=== PATIENT | male | born 1950 | race Caucasian/White ===

== ENCOUNTER 2020-06-20 08:46 | Outpatient (REF) | payer OTHER, SELFPAY ==
--- NOTE | 2020-06-20 08:51 | CT_ITS ---
EXAMINATION: CT CHEST WITHOUT CONTRAST CLINICAL INFORMATION: Lung nodule. COMPARISON: Previous chest CT most recent June 2019 TECHNIQUE: Multidetector volumetric CT imaging of the chest was done. Axial MIP volume rendering provided. Sagittal and coronal reformatted images were obtained. This CT examination was performed using dose optimization techniques as appropriate, variously including the following: *Automated exposure control *Adjustment of mA and/or kV according to patient size (this includes techniques or standardized protocols for targeted exams where dose is matched to indication/reason for exam; i.e. extremities or head) *Use of iterative reconstruction technique DLP: 171 mGy-cm FINDINGS: LUNGS: There is evidence of severe emphysema. There is biapical pleural and parenchymal scarring. The 8 x 9 mm peripheral or subpleural right middle lobe nodule adjacent to the minor fissure axial image 407 series 7 is stable. There are multiple smaller calcified and noncalcified small pulmonary nodules that are stable. There is subsegmental atelectasis or scarring in the right middle lobe, left upper lobe and lingula that is stable. MEDIASTINUM: There are multiple mediastinal lymph nodes that are stable. Larger lymph nodes are upper normal in size. No new adenopathy is seen. There are post-CABG changes. The heart does not appear enlarged. There is no pericardial effusion. The thoracic aorta is normal in caliber. PLEURA: There is no pleural effusion. No pleural mass or thickening. AXILLA: No lymphadenopathy. UPPER ABDOMEN: There may be diverticulosis of the colon. OSSEOUS STRUCTURES: There are degenerative changes of the spine. There is a median sternotomy. CT/CT chest wo con IMPRESSION: Severe emphysema. Biapical pleural and parenchymal scarring. Stable pulmonary nodules.
== END 2020-06-20 08:47 | disposition home or self-care (01) ==
LOC: HO.CT 08:46
PROVIDERS: PCP Internal Medicine; Visit Provider Internal Medicine
DX: R91.1 Solitary pulmonary nodule (principal)
CPT/HCPCS: 71250

== ENCOUNTER 2020-11-28 10:23 | Outpatient (REF) | payer BC, SELFPAY ==
[2020-11-28 11:25] LABS: Estimated Average Glucose 114 mg/dL; Hemoglobin A1C 150.0921 umol/L; Hemoglobin A1c % 5.6 %
[2020-11-28 11:52] LABS: Alanine Aminotransferase 28 U/L (0-40); Albumin Level 4.3 g/dL (3.5-5.0); Alkaline Phosphatase 69 U/L (39-117); Aspartate Amino Transferase 19 U/L (5-37); Bilirubin Direct 0.3 mg/dL (0.0-0.5); Bilirubin Total 0.7 mg/dL (0.0-1.0); Cholesterol 101 mg/dL; Glucose Fasting 99 mg/dL (60-99); HDL Cholesterol 28 mg/dL; LDL Cholesterol Calculated 51 mg/dl; Total Protein 7.5 g/dL (6.5-8.0); Triglycerides 112 mg/dL
[2020-11-28 13:40] LABS: Reflex LDLD? No
== END 2020-11-28 10:24 | disposition home or self-care (01) ==
LOC: HO.LNP 10:23
PROVIDERS: PCP Internal Medicine; Visit Provider Internal Medicine
DX: E78.5 Hyperlipidemia, unspecified (principal); R73.03 Prediabetes
CPT/HCPCS: 80061; 80076; 82947; 83036

== ENCOUNTER 2021-05-08 10:14 | Outpatient (REF) | payer BC, SELFPAY ==
[2021-05-08 10:19] LABS: MANUAL DIFF FLAG NO
[2021-05-08 10:23] LABS: Basophils Percent Auto 0.3 % (0-2); Eosinophils Absolute Auto 0.3 X10*3/uL (0.0-0.4); Eosinophils Percent Auto 4.4 % (0-4); Hematocrit 44.1 % (42-52); Hemoglobin 14.4 g/dl (14.0-18.0); Imm Gran Abs Auto 0.01 X10*3/uL (0.00-0.03); Imm Gran Pct Auto 0.2 % (0.0-0.4); Lymphocytes Percent Auto 30.6 % (20-40); Mean Corpuscular HGB Conc 32.7 g/dl (31.0-36.0); Mean Corpuscular Hemoglobin 32.1 pg (27.0-33.0); Mean Corpuscular Volume 98.4 fL (80-98); Mean Platelet Volume 11.4 fL (9.4-12.4); Monocytes Absolute Auto 0.7 X10*3/uL (0.1-1.2); Monocytes Percent Auto 10.7 % (2-11); Neutrophils Absolute Auto 3.6 X10*3/uL (2.0-8.3); Neutrophils Percent Auto 53.8 % (45-73); Platelet Count 163 X10*3/uL (160-400); Red Blood Count 4.48 X10*6/uL (4.60-5.80); Red Cell Distribution Width 13.9 % (11.0-16.0); White Blood Count 6.6 X10*3/uL (4.8-10.8)
[2021-05-08 10:42] LABS: Alanine Aminotransferase 28 U/L (0-40); Albumin Level 4.2 g/dL (3.5-5.0); Alkaline Phosphatase 56 U/L (39-117); Anion Gap 14 (12-20); Appearance Urine CLEAR; Aspartate Amino Transferase 16 U/L (5-37); Bilirubin Total 0.8 mg/dL (0.0-1.0); Blood Urea Nitrogen 18 mg/dL (9-16); Calcium 8.8 mg/dL (8.4-10.2); Carbon Dioxide 21 mmol/L (22-29); Chloride 113 mmol/L (96-108); Cholesterol 98 mg/dL; Color Urine YELLOW; Estimated Glomerular Filt Rate 56; Glucose Fasting 99 mg/dL (60-99); Glucose Urine UA NEG (NEG); HDL Cholesterol 25 mg/dL; LDL Cholesterol Calculated 47 mg/dl; Leukocyte Esterase Urine NEG (NEG); Nitrite Urine NEG (NEG); Potassium 4.1 mmol/L (3.3-5.1); Sodium 144 mmol/L (135-145); Specific Gravity - Urine 1.025 (1.005-1.025); Total Protein 7.1 g/dL (6.5-8.0); Triglycerides 130 mg/dL; Urine Blood NEG (NEG); Urine Ketones NEG (NEG); Urine Protein NEG (NEG-TRACE)
[2021-05-08 11:06] LABS: Creatinine Urine 120.26 mg/dL; Microalbum/Creatinine Ratio Ur 10.8 ug/mg cr
[2021-05-08 11:13] LABS: Estimated Average Glucose 108 mg/dL; Hemoglobin A1c % 5.4 %
[2021-05-08 12:01] LABS: Reflex LDLD? No
== END 2021-05-08 10:15 | disposition home or self-care (01) ==
LOC: HO.LNP 10:14
PROVIDERS: Visit Provider Internal Medicine
DX: Z00.00 Encounter for general adult medical examination without abnormal findings (principal); Z12.5 Encounter for screening for malignant neoplasm of prostate; E87.1 Hypo-osmolality and hyponatremia; R79.89 Other specified abnormal findings of blood chemistry; E78.5 Hyperlipidemia, unspecified; R79.9 Abnormal finding of blood chemistry, unspecified; E87.5 Hyperkalemia
CPT/HCPCS: 80053; 80061; 81003; 82043; 83036; 84153; 85025

== ENCOUNTER 2021-06-20 10:21 | Outpatient (REF) | payer BC, SELFPAY ==
--- NOTE | ~2021-06-20 | CT_ITS ---
EXAMINATION: CT CHEST WITHOUT CONTRAST CLINICAL INFORMATION: Lung nodule. COMPARISON: CT chest 06/20/2020 06/18/2019. TECHNIQUE: Multidetector volumetric CT imaging of the chest was done. Axial MIP volume rendering provided. Sagittal and coronal reformatted images were obtained. This CT examination was performed using dose optimization techniques as appropriate, variously including the following: *Automated exposure control *Adjustment of mA and/or kV according to patient size (this includes techniques or standardized protocols for targeted exams where dose is matched to indication/reason for exam; i.e. extremities or head) *Use of iterative reconstruction technique DLP: 187 mGy-cm FINDINGS: CUSTOMER SUPPORT EXECUTIVE: The lungs are hyperinflated without any acute process. There are median sternotomy sutures. LUNGS: There is diffuse centrilobular emphysema with bilateral apical parenchymal scarring and apical pleural thickening. There is a 1 mm calcified nodule left lower lobe axial image 315/7, 1 mm calcified nodule left upper lobe image 311/7, 2 mm calcified nodule right upper lobe axial image 350/7, 7mm x 8 mm nodule right middle lobe axial image 398/7. There are a few scattered calcified nodules in the right lower lobe adjacent to the major fissure measuring 2 mm and 3 mm axial image 456/7 and 450/7 respectively. There are several additional calcifications seen. No consolidation noted. MEDIASTINUM: The thyroid lobes are symmetric and normal. The central trachea and the bronchi are widely patent. The heart size and the great vessels are normal caliber. There is no pericardial effusion. There are coronary artery calcifications present. There are several benign precarinal and pretracheal lymph nodes. PLEURA: There is no pleural effusion. No pleural mass or thickening. AXILLA: There are small shotty axillary lymph nodes which appear benign. The chest wall is unremarkable. UPPER ABDOMEN: Liver, spleen, pancreas and bilateral adrenal glands appear unremarkable. There is no radiopaque gallstones. OSSEOUS STRUCTURES: No aggressive lytic or sclerotic process seen. The median sternotomy sutures from previous CABG. CT/CT chest wo con IMPRESSION: 1. Few centrilobular emphysema with multiple calcified and noncalcified nodules, stable. The largest 7 x 8 mm nodule right middle lobe essentially stable. Previously it measured 8 x 9 mm. 2. Benign bilateral axillary and mediastinal lymph nodes. 3. No change from previous study.
== END 2021-06-20 10:22 | disposition home or self-care (01) ==
LOC: HO.CT 10:21
PROVIDERS: Visit Provider Internal Medicine
DX: R91.1 Solitary pulmonary nodule (principal)
CPT/HCPCS: 71250

== ENCOUNTER 2021-11-30 11:07 | Outpatient (REF) | payer BC, SELFPAY ==
[2021-11-30 12:29] LABS: Estimated Average Glucose 126 mg/dL
[2021-11-30 12:31] LABS: Alanine Aminotransferase 26 U/L (0-40); Albumin Level 4.1 g/dL (3.5-5.0); Alkaline Phosphatase 64 U/L (39-117); Aspartate Amino Transferase 16 U/L (5-37); Bilirubin Direct 0.5 mg/dL (0.0-0.5); Bilirubin Total 1.2 mg/dL (0.0-1.0); Cholesterol 104 mg/dL; Glucose Fasting 107 mg/dL (60-99); HDL Cholesterol 25 mg/dL; LDL Cholesterol Calculated 54 mg/dl; Total Protein 7.3 g/dL (6.5-8.0); Triglycerides 128 mg/dL
== END 2021-11-30 11:08 | disposition home or self-care (01) ==
LOC: HO.LNP 11:07
PROVIDERS: Visit Provider Internal Medicine
DX: E78.5 Hyperlipidemia, unspecified (principal); R73.03 Prediabetes
CPT/HCPCS: 80061; 80076; 82947; 83036

== ENCOUNTER 2022-06-07 10:38 | Outpatient (REF) | payer BC, SELFPAY ==
[2022-06-07 10:49] LABS: MANUAL DIFF FLAG NO
[2022-06-07 11:09] LABS: Basophils Percent Auto 0.4 % (0-2); Eosinophils Absolute Auto 0.2 X10*3/uL (0.0-0.4); Eosinophils Percent Auto 2.7 % (0-4); Hematocrit 46.5 % (42.0-52.0); Hemoglobin 15.5 g/dl (14.0-18.0); Imm Gran Abs Auto 0.04 X10*3/uL (0.00-0.03); Imm Gran Pct Auto 0.5 % (0.0-0.4); Lymphocytes Absolute Auto 2.1 X10*3/uL (1.2-4.9); Lymphocytes Percent Auto 25.6 % (20-40); Mean Corpuscular HGB Conc 33.3 g/dl (31.0-36.0); Mean Corpuscular Hemoglobin 32.5 pg (27.0-33.0); Mean Corpuscular Volume 97.5 fL (80.0-98.0); Mean Platelet Volume 10.8 fL (9.4-12.4); Monocytes Absolute Auto 0.9 X10*3/uL (0.1-1.2); Monocytes Percent Auto 11.6 % (2-11); Neutrophils Absolute Auto 4.8 x10*3/uL (2.0-8.3); Neutrophils Percent Auto 59.2 % (45-73); Platelet Count 198 X10*3/uL (160-400); Red Blood Count 4.77 X10*6/uL (4.60-5.80); Red Cell Distribution Width 14.3 % (11.0-16.0); White Blood Count 8.1 X10*3/uL (4.8-10.8)
[2022-06-07 11:13] LABS: Appearance Urine Clear; Color Urine Yellow; Glucose Urine UA Negative (Negative); Leukocyte Esterase Urine Negative (Negative); Nitrite Urine Negative (Negative); PH 5.5 (5.0-9.0); Urine Blood Negative (Negative); Urine Ketones Negative (Negative); Urine Protein Negative (Neg-Trace)
[2022-06-07 11:16] LABS: Bacteria Urine None Seen (None Seen); Hyaline Casts Urine 0-2 /LPF (0-2); RBC Urine 0-2 /HPF (0-2); Squamous Epithelial Cell Urine 0-2 /HPF (0-2); WBC Urine 0-5 /HPF (0-5)
[2022-06-07 11:19] LABS: Estimated Average Glucose 117 mg/dL; Hemoglobin A1c % 5.7 %
[2022-06-07 11:20] LABS: Alanine Aminotransferase 29 U/L (0-40); Albumin Level 4.4 g/dL (3.5-5.0); Alkaline Phosphatase 60 U/L (39-117); Anion Gap 16 (12-20); Aspartate Amino Transferase 21 U/L (5-37); Bilirubin Total 1.5 mg/dL (0.0-1.0); Blood Urea Nitrogen 18 mg/dL (9-16); Calcium 9.3 mg/dL (8.4-10.2); Carbon Dioxide 21 mmol/L (22-29); Chloride 108 mmol/L (96-108); Cholesterol 104 mg/dL; Estimated Glomerular Filt Rate 50; Glucose Fasting 98 mg/dL (60-99); HDL Cholesterol 28 mg/dL; LDL Cholesterol Calculated 47 mg/dl; Potassium 4.2 mmol/L (3.3-5.1); Sodium 141 mmol/L (135-145); Total Protein 7.6 g/dL (6.5-8.0); Triglycerides 146 mg/dL
[2022-06-07 11:52] LABS: Creatinine Urine 69.17 mg/dL; Microalbum/Creatinine Ratio Ur 7.2 ug/mg cr
== END 2022-06-07 10:39 | disposition home or self-care (01) ==
LOC: HO.LNP 10:38
PROVIDERS: Visit Provider Internal Medicine
DX: Z00.00 Encounter for general adult medical examination without abnormal findings (principal); E78.5 Hyperlipidemia, unspecified; R73.03 Prediabetes; Z12.5 Encounter for screening for malignant neoplasm of prostate
CPT/HCPCS: 80053; 80061; 81001; 82043; 83036; 84153; 85025

== ENCOUNTER 2022-06-14 13:06 | Outpatient (REF) | payer BC, SELFPAY ==
--- NOTE | ~2022-06-14 | CT_ITS ---
EXAMINATION: CT CHEST WITHOUT CONTRAST CLINICAL INFORMATION: Solitary pulmonary nodule. Follow up. COMPARISON: CT chest 06/20/2021. TECHNIQUE: Multidetector volumetric CT imaging of the chest was done. Axial MIP volume rendering provided. Sagittal and coronal reformatted images were obtained. This CT examination was performed using dose optimization techniques as appropriate, variously including the following: *Automated exposure control *Adjustment of mA and/or kV according to patient size (this includes techniques or standardized protocols for targeted exams where dose is matched to indication/reason for exam; i.e. extremities or head) *Use of iterative reconstruction technique DLP: 159 mGy-cm FINDINGS: TRIMMING OPERATOR: Well-inflated lungs. There are median sternotomy sutures from previous intervention. LUNGS: There is diffuse centrilobular emphysema with bilateral apical pleural thickening and parenchymal scarring. There are punctate scattered calcified nodules in the range of 1 to 2 mm, unchanged. 1.2 cm pulmonary nodule right upper lobe on axial image 11/4. There is a faint ill-defined opacity anterior segment right upper lobe better seen on 8 mm thick images. It is nonspecific. There is an 8 mm nodule right middle lobe axial image 40/3. Previously measured same size. No additional nodules seen. MEDIASTINUM: Thyroid lobes are symmetric and normal. The central trachea and the bronchi are widely patent. There are coronary artery calcifications present. There is no pericardial effusion. Small calcifications are seen in the aortic window, likely calcified nodules. CORONARY ARTERY CALCIFICATION: Moderate coronary artery calcifications are present. PLEURA: There is no pleural effusion. No pleural mass or thickening. AXILLA: Small shotty lymph nodes seen in the axilla. The chest wall is unremarkable. UPPER ABDOMEN: Visualized liver, spleen, pancreas and bilateral adrenal glands unremarkable. OSSEOUS STRUCTURES: No aggressive lytic or sclerotic process seen. There are median sternotomy sutures from previous intervention. CT/CT chest wo IV con IMPRESSION: Stable punctate calcified nodules. Dominant noncalcified nodule right middle lobe measuring 8 mm is stable. There is new ill-defined opacity right upper lobe measuring 1.2 cm. It could represent developing scar. As per Fleischner guidelines, follow up can be performed in 3 months or PET/CT. Fleischner guidelines were followed.
== END 2022-06-14 13:07 | disposition home or self-care (01) ==
LOC: HO.CT 13:06
PROVIDERS: Visit Provider Internal Medicine
DX: R91.1 Solitary pulmonary nodule (principal)
CPT/HCPCS: 71250

== ENCOUNTER 2022-07-10 11:23 | Outpatient (REF) | payer BC, SELFPAY ==
--- NOTE | ~2022-07-10 | PE_ITS ---
EXAMINATION: PET/CT WHOLE BODY INDICATION: Pulmonary nodularity with staging. COMPARISON: Comparison is made to CT dated 05/14/2022. TECHNIQUE: Dedicated coincidence imaging from the base of the skull to the thighs. 16.4 mCi F-18 deoxyglucose. FINDINGS: The partially visualized brain activity is felt to be within normal limits. In the neck, some activity posterior to the hyoid cartilage which may be in the esophagus, but there is no obvious mass here. Activity at 4.9 SUV max. Consider direct visualization. The remainder of the neck activity is within normal limits. In the chest, there is no suspicious mediastinal or hilar activity. Imaging of the lung cisneros. Right Lung: No significant uptake in the area of density/scar nodularity in the right upper lung. Uptake in the region is 0.8 SUV max. Background in the lung is 0.5 SUV max. In the area of nodularity in the right middle lobe described on diagnostic CT, no significant uptake. Uptake at 0.9 SUV max. Left Lung: No suspicious focus. Upper Abdomen: In the liver, uptake on image 137 of 267 without a convincing evidence of a CT correlate. This is in the left lobe. Uptake at 4 SUV max. Background in the liver 2.9 SUV max. Consider ultrasound. Otherwise, splenic uptake is within normal limits. Uptake within the stomach with possible fold thickening. This may represent an element of gastritis. Consider direct visualization. Normal renal and bladder activity. Normal low-level bowel activity. Diverticulosis is noted in the colon. Atherosclerotic changes in the vasculature. Review of the bone windows does not demonstrate a suspicious focus. PET/PET CT fusion skull to thigh IMPRESSION: No significant uptake in areas of abnormality in the lung described on diagnostic CT. I would only recommend 3-month low-dose noncontrast followup. It should be noted 10% of lung malignancies do not show significant uptake. There is some uptake at the level of the hyoid bone posterior which shows no convincing anatomic correlate other than the esophagus in the region. There is also some uptake in the fundus of the stomach. I would recommend direct visualization endoscopy. Questionable focal uptake in the left lobe of the liver could be artifactual. Recommend ultrasound to exclude a lesion here.
== END 2022-07-10 11:24 | disposition home or self-care (01) ==
LOC: HO.PET 11:23
PROVIDERS: Visit Provider Internal Medicine
DX: Z13.89 Encounter for screening for other disorder (principal)

== ENCOUNTER 2022-10-17 14:54 | Outpatient (REF) | payer BC, SELFPAY ==
--- NOTE | ~2022-10-17 | CT_ITS ---
EXAMINATION: CT CHEST WITHOUT CONTRAST CLINICAL INFORMATION: Lung nodule. COMPARISON: None available. TECHNIQUE: Multidetector volumetric CT imaging of the chest was done. Axial MIP volume rendering provided. Sagittal and coronal reformatted images were obtained. This CT examination was performed using dose optimization techniques as appropriate, variously including the following: *Automated exposure control *Adjustment of mA and/or kV according to patient size (this includes techniques or standardized protocols for targeted exams where dose is matched to indication/reason for exam; i.e. extremities or head) *Use of iterative reconstruction technique DLP: 182 mGy-cm FINDINGS: FENCE MANUFACTURE SUPERVISOR: Hyperinflated lungs. LUNGS: There is diffuse centrilobular emphysema with bilateral apical pleural thickening and parenchymal scarring. There is an ill-defined right upper lobe density with a small posterior nodular component similar to previous study measuring 1.2 cm on image 34/9 and 117/6. Faint ill-defined density right upper lobe anterior segment better seen on 8 mm thick axial images image 39/9 measuring 7 mm stable. There are several punctate 1-2 mm pulmonary nodules are stable. There is an 8 mm nodule right middle lobe axial image 356/6, stable. MEDIASTINUM: The thyroid lobes are symmetric and normal. The central trachea and bronchi are widely patent. The heart size and great vessels are normal caliber. No pericardial effusion seen. No abnormal mediastinal lymph nodes. CORONARY ARTERY CALCIFICATION: There is moderate coronary artery calcifications present. PLEURA: There is no pleural effusion or thickening. AXILLA: There are no abnormal axillary lymph nodes seen. UPPER ABDOMEN: Visualized liver, spleen, pancreas and bilateral adrenal glands are unremarkable. There are no radiopaque gallstones. OSSEOUS STRUCTURES: No aggressive lytic or sclerotic process seen. There are median sternotomy sutures from previous intervention. There is [id number] lower dorsal spine ventral spondylosis. No aggressive lytic or sclerotic process seen. CT/CT chest wo IV con IMPRESSION: 1. Diffuse centrilobular emphysema with bilateral apical pleural thickening and parenchymal scarring. 2. There are several pulmonary nodules which are stable. No new nodules seen. 3. No abnormal mediastinal or axillary lymph nodes seen. 4. Moderate coronary artery calcifications are stable. 5. An 8 mm nodule right middle lobe is stable. 6. Recommend low-dose annual CT chest follow-up. Fleischner guidelines were followed.
== END 2022-10-17 14:55 | disposition home or self-care (01) ==
LOC: HO.CT 14:54
PROVIDERS: PCP Internal Medicine; Visit Provider Internal Medicine
DX: R91.1 Solitary pulmonary nodule (principal)
CPT/HCPCS: 71250

== ENCOUNTER 2022-12-06 10:22 | Outpatient (REF) | payer BC, SELFPAY ==
[2022-12-06 11:00] LABS: Estimated Average Glucose 117 mg/dL; Hemoglobin A1c % 5.7 %
[2022-12-06 11:03] LABS: Alanine Aminotransferase 40 U/L (0-40); Albumin Level 4.2 g/dL (3.5-5.0); Alkaline Phosphatase 64 U/L (39-117); Aspartate Amino Transferase 24 U/L (5-37); Bilirubin Direct 0.5 mg/dL (0.0-0.5); Bilirubin Total 1.8 mg/dL (0.0-1.0); Cholesterol 95 mg/dL; Glucose Fasting 99 mg/dL (60-99); HDL Cholesterol 26 mg/dL; LDL Cholesterol Calculated 44 mg/dl; Triglycerides 127 mg/dL
[2022-12-06 14:44] LABS: Reflex LDLD? No
== END 2022-12-06 10:23 | disposition home or self-care (01) ==
LOC: HO.LNP 10:22
PROVIDERS: PCP Internal Medicine; Visit Provider Internal Medicine
DX: E78.5 Hyperlipidemia, unspecified (principal); R73.03 Prediabetes
CPT/HCPCS: 80061; 80076; 82947; 83036

== ENCOUNTER 2023-04-03 09:01 | Day surgery (SDC) | payer BC, SELFPAY ==
[2023-04-03 09:35] VITALS: BMI 25.1
--- NOTE | 2023-04-03 09:36 | P.CONAN_ITS ---
HPI - Anesthesia Eval Consult details Narrative: egd [facility] Family History Family history of problems with anesthesia: No Surgical History History of Problems with Anesthesia: No Social History Social History Advance Directives: No Advance Directives Information Provided: Yes Meds Allergies Allergy/AdvReac Type Severity Reaction Status Date / Time No Known Allergies Allergy Unverified 04/02/23 13:12 Home Medications Medication Instructions Recorded Confirmed Last Taken Type albuterol sulfate 90 mcg/actuation inhalation 04/03/23 04/02/23 History aerosol inhaler aspirin 81 mg capsule 81 mg PO DAILY 04/03/23 04/03/23 04/02/23 History atorvastatin 80 mg tablet 80 mg PO DAILY 04/03/23 04/03/23 04/03/23 History diltiazem HCl 180 mg 180 mg PO DAILY 04/03/23 04/03/23 04/03/23 History capsule,extended release 24 hr, controlled (DILT-XR) losartan 100 mg tablet 100 mg PO DAILY 04/03/23 04/03/23 04/03/23 History tiotropium 2.5 mcg-olodaterol 2.5 2 puff inhalation DAILY 04/03/23 04/03/23 04/03/23 History mcg/actuation mist for inhalation (Stiolto Respimat) Exam Exam Date and Time: April 03, 2023 0936 Airway Mallampati Class: II TM Dist: >3cm Neck ROM: Limited Heart: rrr Lungs: cta Assessment and Plan Assessment Anesthesia Assessment: Anesthesia Plan Discussed and Chart Reviewed Final Anesthetic Review Family History of Problems with Anesthesia: No History of Problems with Anesthesia: No NPO: Yes ASA Class: II Final Preanesthetic Review: No Changes in Pt Med Stat, Meds/Allgs Chart Reviewed, Consent Obtained/Reviewed and Anes Risks/Benef Reviewed Patient Risk: Intermediate Procedure Risk: Intermediate Anesthetic Plan Anesthetic Plan: MAC: and Agree w/ Assess. and Plan Disposition: Standard PACU
[2023-04-03 09:49] VITALS: BP 131/71; PULSE 58; RESP 18; TEMP 36.3; O2SAT 91
--- NOTE | 2023-04-03 09:55 | ECG_ITS ---
Test Reason : inverted t waves Blood Pressure : / mmHG Vent. Rate : 065 BPM Atrial Rate : 065 BPM P-R Int : 184 ms QRS Dur : 092 ms QT Int : 396 ms P-R-T Axes : 071 040 160 degrees QTc Int : 411 ms Normal sinus rhythm ST & T wave abnormality, consider inferolateral ischemia Abnormal ECG No previous ECGs available Referred By: Peter Guillen Electronically Signed By:MARTIN TORO
--- NOTE | 2023-04-03 10:04 | PC.NURSE ---
pt with twave inversions on monitor denies chest pain, admits to sob w/activ at baseline ra sat 88-91% at baseline per pt. desat to 80-81% on RA with changing dressing dusky nailbeds rr24. 2Lnc applied sat improved to 95-97% lungs clear dim t.o. strip showed to Dr. Guillen, Floor Anesthesiologist. 12 lead ekg ordered & obtained.
--- NOTE | 2023-04-03 10:22 | PC.NURSE ---
attempt at calling front office coordinator for copy of ekg - message left at MD Sancho Thomas office - request fax of latest ekg for comparison. to try pcp, Dr. Mert Camacho - office closed on wednesdays, dr. Mcmanus covering, call placed - per office - no access to pt's record of EKG. Dr. Nunu manrique (case anesthesia). albuteral inhaler given by anesthesia nurse Nitza for optimization.
[2023-04-03 11:01] VITALS: BP 80/50; PULSE 84; RESP 16; TEMP 36.4; O2SAT 94
[2023-04-03 11:05] VITALS: BP 81/45; PULSE 83; RESP 16; O2SAT 95
--- NOTE | 2023-04-03 11:09 | PM.OP ---
Brief Operative Note Date of Service: 04/03/23 Pre-op diagnosis: Abnormal CT of esophagus and stomach Post-op diagnosis: other (Minimal hiatal hernia, mild gastritis) Procedure: EGD Surgeon: Xavier Zimmerman Anesthesia: MAC Was an Form Building Supervisor used for this Procedure?: No Estimated blood loss (mL): 0 Pathology: none sent Condition: stable Disposition: PACU
[2023-04-03 11:10] VITALS: BP 99/61; PULSE 79; RESP 16; O2SAT 96
[2023-04-03 11:15] VITALS: BP 103/64; PULSE 86; RESP 16; O2SAT 91
[2023-04-03 11:30] VITALS: BP 136/84; PULSE 86; RESP 16; TEMP 36.4; O2SAT 94
--- NOTE | 2023-04-03 11:31 | OP_ITS ---
DATE OF SERVICE: 04/03/2023 SURGEON: Xavier Zimmerman MD INDICATIONS: The patient presents for evaluation of an abnormal PET-CT scan of the esophagus and stomach. Full consent was obtained from him for this, including risks of bleeding and perforation. PREOPERATIVE DIAGNOSIS: Abnormal PET-CT scan of esophagus and stomach. POSTOPERATIVE DIAGNOSIS: PROCEDURE PERFORMED: Esophagogastroduodenoscopy. ESTIMATED BLOOD LOSS: COMPLICATIONS: ANESTHESIA: Monitored anesthesia care. ASSISTANTS: SPECIMENS: POSTOPERATIVE DIAGNOSES: Abnormal PET-CT scan of esophagus and stomach., small hiatal hernia, mild gastritis. DESCRIPTION OF PROCEDURE: The patient was placed in the left lateral decubitus position. The Olympus video gastroscope was passed into the posterior oropharynx and upper esophagus under direct vision. The scope was passed slowly to the distal esophagus. The gastroesophageal junction appeared normal at 39 cm. There was no sign of any esophagitis nor Mcwilliams's esophagus. There was a minimal hiatal hernia. The scope was advanced to the pylorus and the duodenum was cannulated to the descending portion. The duodenum including the bulb appeared normal without mass or ulceration. The scope was withdrawn back to the stomach. The gastric antrum had some areas of erythema and some slight edema, but no erosions nor ulceration. There was good peristalsis. The scope was retroflexed visualizing the proximal stomach very carefully which appeared normal, other than some slight areas of erythema and edema. There was no any sign of any proximal mass or ulceration. The scope was straightened and withdrawn back to the esophagus. The esophageal mucosa appeared normal. The proximal esophagus, at the area of abnormality on the PET-CT scan, appeared normal. The scope was withdrawn from the patient. He tolerated the procedure well and was returned to the recovery area in stable condition. IMPRESSION: 1. Minimal hiatal hernia. 2. Mild gastritis. PLAN: At this point, the patient is asymptomatic from a GI standpoint and therefore does not need any particular treatment. He was advised to resume his aspirin today. He will have an outpatient ultrasound of the right upper quadrant due to the questionable finding on the PET-CT scan involving the liver. I suspect that will also be normal. As such, he would then see me on a p.r.n. basis. This has been discussed with the patient and his in detail. MD ZHEN Gee/LIN / [id number] MARY
== END 2023-04-03 12:24 | disposition home or self-care (01) ==
PROVIDERS: PCP Internal Medicine; Visit Provider Internal Medicine
PROC: 0DJ08ZZ Inspection of Upper Intestinal Tract, Via Natural or Artificial Opening Endoscopic (ICD-10-PCS; CPT 43235; principal; 2023-04-03 10:20)
DX: R93.3 Abnormal findings on diagnostic imaging of other parts of digestive tract (principal); K29.60 Other gastritis without bleeding; K44.9 Diaphragmatic hernia without obstruction or gangrene; I10 Essential (primary) hypertension; E78.5 Hyperlipidemia, unspecified; I25.10 Atherosclerotic heart disease of native coronary artery without angina pectoris; Z95.5 Presence of coronary angioplasty implant and graft; J43.9 Emphysema, unspecified; Z87.891 Personal history of nicotine dependence; Z79.82 Long term (current) use of aspirin; Z79.01 Long term (current) use of anticoagulants; Z79.899 Other long term (current) drug therapy; R91.8 Other nonspecific abnormal finding of lung field
CPT/HCPCS: 43235; 93005

== ENCOUNTER 2023-04-19 10:09 | Outpatient (REF) | payer BC, SELFPAY ==
--- NOTE | ~2023-04-19 | US_ITS ---
EXAMINATION: US ABDOMEN LIMITED CLINICAL INFORMATION: Evaluate right upper quadrant abnormal findings on PET scan. COMPARISON: PET/CT 07/10/2022 TECHNIQUE: Real-time imaging of the right upper quadrant abdominal viscera. FINDINGS: PANCREAS: Visualized portions of the pancreas are unremarkable. The pancreatic tail is obscured by bowel gas. LIVER: Normal. The liver is normal in size. The liver contour is normal. Parenchymal echogenicity is normal. No focal hepatic lesion. There is no intrahepatic biliary duct dilatation seen. GALLBLADDER: Normal. The gallbladder is physiologically distended without evidence of stones, sludge, polyps, wall thickening or pericholecystic fluid. COMMON BILE DUCT: Normal in caliber measuring 0.3 cm in diameter. RIGHT KIDNEY: Normal. No hydronephrosis. No renal calculi or focal parenchymal lesions. The kidney measures 10.6 cm in maximum dimension. FREE FLUID: None. US/US abdomen limited IMPRESSION: No focal hepatic lesion identified sonographically however given findings on PET/CT recommend contrast-enhanced MRI to exclude a discrete liver lesion.
== END 2023-04-19 10:10 | disposition home or self-care (01) ==
LOC: HO.US 10:09
PROVIDERS: PCP Internal Medicine; Visit Provider Internal Medicine
DX: R93.2 Abnormal findings on diagnostic imaging of liver and biliary tract (principal)
CPT/HCPCS: 76705

== ENCOUNTER 2023-06-20 11:02 | Outpatient (REF) | payer BC, SELFPAY ==
--- NOTE | ~2023-06-20 | MR_ITS ---
EXAMINATION: MR ABDOMEN WITHOUT AND WITH CONTRAST CLINICAL INFORMATION: Liver lesion COMPARISON: Abdominal ultrasound 04/19/2023, PET/CT 07/10/2022 TECHNIQUE: MRI of the abdomen before and after the IV administration of 7.5 mL of Gadavist was obtained using routine sequences. FINDINGS: LUNG BASES: The visualized lung bases are unremarkable. KIDNEYS AND URETERS: Unremarkable. GALLBLADDER: Unremarkable. LIVER AND BILIARY TREE: The liver is normal in signal and morphology. No suspicious liver lesion. No intra or extrahepatic biliary duct dilatation. PANCREAS: Unremarkable SPLEEN: Unremarkable ADRENAL GLANDS: Unremarkable GASTROINTESTINAL TRACT: Colonic diverticulosis without evidence of diverticulitis. LYMPH NODES: No lymphadenopathy. VASCULAR: Atherosclerosis of the abdominal aorta. ABDOMINAL WALL: Unremarkable. OSSEOUS STRUCTURES: Multilevel degenerative disc disease. MR/MR abdomen wo/w con IMPRESSION: No suspicious liver lesion.
[2023-06-20] MEDS: gadobutroL 7.5 ML VIAL IVPUSH (12:18)
== END 2023-06-20 11:03 | disposition home or self-care (01) ==
LOC: HO.MRI 11:02
PROVIDERS: PCP Internal Medicine; Visit Provider Internal Medicine
DX: K76.9 Liver disease, unspecified (principal)
CPT/HCPCS: 74183; A9585

== ENCOUNTER 2023-07-12 10:17 | Outpatient (REF) | payer BC, SELFPAY ==
[2023-07-12 10:22] LABS: MANUAL DIFF FLAG NO
[2023-07-12 11:06] LABS: Appearance Urine Clear; Color Urine Yellow; Glucose Urine UA Negative (Negative); Leukocyte Esterase Urine Negative (Negative); Nitrite Urine Negative (Negative); PH 5.5 (5.0-9.0); Specific Gravity - Urine 1.015 (1.005-1.025); Urine Blood Negative (Negative); Urine Ketones Negative (Negative); Urine Protein Negative (Neg-Trace)
[2023-07-12 11:08] LABS: Estimated Average Glucose 117 mg/dL; Hemoglobin A1c % 5.7 % (<6.0)
[2023-07-12 11:10] LABS: Basophils Percent Auto 0.4 % (0-2); Eosinophils Absolute Auto 0.3 X10*3/uL (0.0-0.4); Eosinophils Percent Auto 3.6 % (0-4); Hematocrit 52.3 % (42.0-52.0); Hemoglobin 17.4 g/dl (14.0-18.0); Imm Gran Abs Auto 0.03 X10*3/uL (0.00-0.03); Imm Gran Pct Auto 0.4 % (0.0-0.4); Lymphocytes Absolute Auto 1.8 X10*3/uL (1.2-4.9); Lymphocytes Percent Auto 22.5 % (20-40); Mean Corpuscular HGB Conc 33.3 g/dl (31.0-36.0); Mean Corpuscular Volume 96.3 fL (80.0-98.0); Mean Platelet Volume 10.7 fL (9.4-12.4); Monocytes Absolute Auto 0.8 X10*3/uL (0.1-1.2); Monocytes Percent Auto 10.5 % (2-11); Neutrophils Percent Auto 62.6 % (45-73); Platelet Count 177 X10*3/uL (160-400); Red Blood Count 5.43 X10*6/uL (4.60-5.80); Red Cell Distribution Width 14.1 % (11.0-16.0)
[2023-07-12 11:14] LABS: Bacteria Urine None Seen (None Seen); Hyaline Casts Urine 0-2 /LPF (0-2); RBC Urine 0-2 /HPF (0-2); Squamous Epithelial Cell Urine 0-2 /HPF (0-2); WBC Urine 0-5 /HPF (0-5)
[2023-07-12 11:16] LABS: Alanine Aminotransferase 33 U/L (0-40); Albumin Level 4.3 g/dL (3.5-5.0); Alkaline Phosphatase 51 U/L (39-117); Anion Gap 12 (12-20); Aspartate Amino Transferase 24 U/L (5-37); Bilirubin Total 1.1 mg/dL (0.0-1.0); Blood Urea Nitrogen 20 mg/dL (9-16); Calcium 9.3 mg/dL (8.4-10.2); Carbon Dioxide 23 mmol/L (22-29); Chloride 111 mmol/L (96-108); Cholesterol 96 mg/dL (<200); Estimated Glomerular Filt Rate 49; Glucose Fasting 100 mg/dL (60-99); HDL Cholesterol 30 mg/dL (>40); LDL Cholesterol Calculated 44 mg/dL (<100); Potassium 4.1 mmol/L (3.3-5.1); Sodium 142 mmol/L (135-145); Total Protein 7.9 g/dL (6.5-8.0); Triglycerides 114 mg/dL (<150)
[2023-07-12 11:30] LABS: PSA,Total (Free>4and<10) 0.19 ng/mL (0.00-4.00)
[2023-07-12 11:52] LABS: Creatinine Urine 72.16 mg/dL; Microalbum/Creatinine Ratio Ur 12.4 ug/mg cr (<30)
== END 2023-07-12 10:18 | disposition home or self-care (01) ==
LOC: HO.LNP 10:17
PROVIDERS: Visit Provider Internal Medicine
DX: Z00.00 Encounter for general adult medical examination without abnormal findings (principal); Z12.5 Encounter for screening for malignant neoplasm of prostate; R73.03 Prediabetes; E78.5 Hyperlipidemia, unspecified
CPT/HCPCS: 80053; 80061; 81001; 82043; 82570; 83036; 84153; 85025

== ENCOUNTER 2023-12-02 08:57 | Outpatient (REF) | payer BC, SELFPAY ==
--- NOTE | ~2023-12-02 | CT_ITS ---
EXAMINATION: CT CHEST WITHOUT CONTRAST CLINICAL INFORMATION: Lung nodule. Follow-up of right upper lobe and right middle lobe nodules, not shown to be FDG avid on prior PET/CT scan. Selective significant COMPARISON: CT scan of the chest dated 10/17/2022 and older exams dating back to 06/23/2019. PET/CT scan dated 07/10/2022. TECHNIQUE: Multidetector volumetric CT imaging of the chest was obtained noncontrast. Sagittal and coronal reformations were obtained. This CT examination was performed using dose optimization techniques as appropriate, variously including the following: *Automated exposure control *Adjustment of mA and/or kV according to patient size (this includes techniques or standardized protocols for targeted exams where dose is matched to indication/reason for exam; i.e. extremities or head) *Use of iterative reconstruction technique DLP: 223 mGy-cm. FINDINGS: LUNGS: Moderate centrilobular and mild paraseptal emphysema. Biapical pleural-based reticular nodular opacities again noted, similar to the prior exams, consistent with scarring. More focal area of reticular nodular irregular opacity posteriorly in the right lung apex (series 6, image 92) is again seen, measuring 5 x 13 mm (series 6, image 92), unchanged from 10/17/2022 and 06/14/2022, and new from older exams. Previously described faint ill-defined groundglass nodular density in the anterior right lung apex on the 8 mm thick axial images is again visualized only on the 8mm thick images (series 9, image 28), unchanged. 8 mm solid noncalcified nodule in the medial segment of right middle lobe (series 6, image 319), unchanged dating back to at least 06/20/2021, consistent with a benign finding, warranting no additional imaging follow-up. There are several additional tiny micronodules measuring less than 3 mm seen guided in the lungs bilaterally. A few scattered calcified granulomas are also noted bilaterally. No suspicious new or enlarging focal lung nodule or mass. No effusion or pneumothorax. Central airways patent. LYMPHOVASCULAR STRUCTURES: Aortic and heart size normal. Moderate great vessel and aortic calcifications No pericardial effusion. No mediastinal, hilar or axillary adenopathy. CORONARY ARTERY CALCIFICATION: Moderate to severe three-vessel coronary artery calcifications. The patient is status post coronary artery bypass grafting. THYROID GLAND: Unremarkable to the extent included. UPPER ABDOMEN: Mild atrophy of the pancreatic parenchyma noted. Prominent fat invagination along blood vessels into the central splenic parenchyma noted. Included portions of the solid organs in the upper abdomen otherwise unremarkable. BONES: Median sternotomy wires are midline in position and intact. Mild S-shaped thoracic scoliosis. Moderate vertebral spondylosis in mid and lower thoracic spine and mild vertebral spondylosis in upper thoracic spine. No suspicious bone findings. CT/CT chest wo IV con IMPRESSION: * No significant interval change in the 9 mm average diameter irregular reticular nodular opacity in the posterior right lung apex when compared to 10/17/2022 and 06/14/2022. This finding is, however, new from older exams. The patient has underlying moderate emphysema. Please evaluate if the patient is eligible for inclusion in a lung cancer screening program with continued annual monitoring of this finding. * No interval change in 8mm right middle lobe nodule dating back to at least 06/20/2021, consistent with a benign finding, warranting no specific imaging follow-up. * No new or enlarging pulmonary nodule or mass. * No adenopathy. * Moderate to severe three-vessel coronary artery calcifications with prior coronary artery bypass grafting. * Mild atrophy of the pancreatic parenchyma. * Moderate to severe three-vessel coronary artery calcifications with post CABG changes.
== END 2023-12-02 08:58 | disposition home or self-care (01) ==
LOC: HO.CT 08:57
PROVIDERS: PCP Internal Medicine; Visit Provider Internal Medicine
DX: R91.1 Solitary pulmonary nodule (principal)
CPT/HCPCS: 71250

== ENCOUNTER 2024-01-13 11:45 | Outpatient (REF) | payer BC, SELFPAY ==
[2024-01-13 12:25] LABS: Alanine Aminotransferase 27 U/L (0-40); Albumin Level 4.1 g/dL (3.5-5.0); Alkaline Phosphatase 58 U/L (39-117); Aspartate Amino Transferase 21 U/L (5-37); Bilirubin Direct 0.3 mg/dL (0.0-0.5); Cholesterol 96 mg/dL (<200); HDL Cholesterol 31 mg/dL (>40); LDL Cholesterol Calculated 47 mg/dL (<100); Total Protein 7.7 g/dL (6.5-8.0); Triglycerides 93 mg/dL (<150)
[2024-01-13 13:22] LABS: Reflex LDLD? No
== END 2024-01-13 11:46 | disposition home or self-care (01) ==
LOC: HO.LNP 11:45
PROVIDERS: Visit Provider Internal Medicine
DX: E78.5 Hyperlipidemia, unspecified (principal)
CPT/HCPCS: 80061; 80076

== ENCOUNTER 2024-07-20 10:29 | Outpatient (REF) | payer BC, SELFPAY ==
--- OUTSIDE RECORDS SUMMARY | 2024-07-20 10:32 | XMS_ITS | Patient Health Record ---
Author Organization Mert Montalvo MD Address [address] [place], [place] [id number] Care Team Providers Care Grinder Dresser Name Role Phone Mert Montalvo Primary Care Provider ALLERGIES Allergen (clinical drug ingredient) Drug/Non Drug Allergy documented on EMR Reaction Allergy Type Onset Date Status lisinopril Lisinopril cough Drug Allergy Activ e RESULTS Component Value Reference Range Notes CT chest wo con Reviewed date:12/10/2023 12:36:02 PM Interpretation: Performing Lab: Notes/Report: [address] [address] [address] Scan Report Signed Patient: Ricky Diaz MR#: [id number] 651 : 1950 Acct:[id number] Age/Sex: 73 / M ADM Date: 12/02/23 Loc: HO.CT Attending Dr: Mert Montalvo MD Ordering Physician: Mert Montalvo MD Date of Service: 12/02/23 Procedure(s): CT chest wo IV con Accession Number(s): [id number] cc: Mert Montalvo MD EXAMINATION: CT CHEST WITHOUT CONTRAST CLINICAL INFORMATION: Lung nodule. Follow-up of right upper lobe and right middle lobe nodules, not shown to be FDG avid on prior PET/CT scan. Selective significant COMPARISON: CT scan of the chest dated 10/17/2022 and older exams dating back to 06/23/2019. PET/CT scan dated 07/10/2022. TECHNIQUE: Multidetector volumetric CT imaging of the chest was obtained noncontrast. Sagittal and coronal reformations were obtained. This CT examination was performed using dose optimization techniques as appropriate, variously including the following: *Automated exposure control *Adjustment of mA and/or kV according to patient size (this includes techniques or standardized protocols for targeted exams where dose is matched to indication/reason for exam; i.e. extremities or head) *Use of iterative reconstruction technique DLP: 223 mGy-cm. FINDINGS: LUNGS: Moderate centrilobular and mild paraseptal emphysema. Biapical pleural-based reticular nodular opacities again noted, similar to the prior exams, consistent with scarring. More focal area of reticular nodular irregular opacity posteriorly in the right lung apex (series 6, image 92) is again seen, measuring 5 x 13 mm (series 6, image 92), unchanged from 10/17/2022 and 06/14/2022, and new from older exams. Previously described faint ill-defined groundglass nodular density in the anterior right lung apex on the 8 mm thick axial images is again visualized only on the 8mm thick images (series 9, image 28), unchanged. 8 mm solid noncalcified nodule in the medial segment of right middle lobe (series 6, image 319), unchanged dating back to at least 06/20/2021, consistent with a benign finding, warranting no additional imaging follow-up. There are several additional tiny micronodules measuring less than 3 mm seen guided in the lungs bilaterally. A few scattered calcified granulomas are also noted bilaterally. No suspicious new or enlarging focal lung nodule or mass. No effusion or pneumothorax. Central airways patent. LYMPHOVASCULAR STRUCTURES: Aortic and heart size normal. Moderate great vessel and aortic calcifications No pericardial effusion. No mediastinal, hilar or axillary adenopathy. CORONARY ARTERY CALCIFICATION: Moderate to severe three-vessel coronary artery calcifications. The patient is status post coronary artery bypass grafting. THYROID GLAND: Unremarkable to the extent included. UPPER ABDOMEN: Mild atrophy of the pancreatic parenchyma noted. Prominent fat invagination along blood vessels into the central splenic parenchyma noted. Included portions of the solid organs in the upper abdomen otherwise unremarkable. BONES: Median sternotomy wires are midline in position and intact. Mild S-shaped thoracic scoliosis. Moderate vertebral spondylosis in mid and lower thoracic spine and mild vertebral spondylosis in upper thoracic spine. No suspicious bone findings. CT/CT chest wo IV con IMPRESSION: * No significant interval change in the 9 mm average diameter irregular reticular nodular opacity in the posterior right lung apex when compared to 10/17/2022 and 06/14/2022. This finding is, however, new from older exams. The patient has underlying moderate emphysema. Please evaluate if the patient is eligible for inclusion in a lung cancer screening program with continued annual monitoring of this finding. * No interval change in 8mm right middle lobe nodule dating back to at least 06/20/2021, consistent with a benign finding, warranting no specific imaging follow-up. * No new or enlarging pulmonary nodule or mass. * No adenopathy. * Moderate to severe three-vessel coronary artery calcifications with prior coronary artery bypass grafting. * Mild atrophy of the pancreatic parenchyma. * Moderate to severe three-vessel coronary artery calcifications with post CABG changes. Dictated By: Pearl Pitts MD Signed By: <Electronically signed by Pearl Pitts MD in OV> 12/09/2341 DD/ TD/TT: Communications Field Technician: ADAM Prado Reviewed date:01/13/2024 12:28:21 PM Interpretation: Performing Lab:[facility], [address] [place] [phone] Notes/Report: Semaj Prado See Note Specimen held untested for 24 hours; Call to request Chemistry testing. Liver Panel Reviewed date:01/13/2024 02:27:06 PM Interpretation: Performing Lab:[facility], [address] [place] [phone] Notes/Report: Bilirubin Total 1.0 0.0-1.0 mg/dL Bilirubin Direct 0.3 0.0-0.5 mg/dL Aspartate Amino Transferase 21 5-37 U/L Alanine Aminotransferase 27 0-40 U/L Total Protein 7.7 6.5-8.0 g/dL Albumin Level 4.1 3.5-5.0 g/dL Alkaline Phosphatase 58 39-117 U/L Lipid Panel with Reflex Reviewed date:01/13/2024 04:50:29 PM Interpretation: Performing Lab:[facility], [address] [place] [address], [place] [address] Notes/Report: Triglycerides 93 <150 mg/dL Desirable Triglyceride: less than 150 mg/dL Borderline High Triglyceride 150-199 mg/dL High Triglyceride: 200-499 mg/dL Very High Triglyceride: greater than or equal to 5OO mg/dL Cholesterol 96 <200 mg/dL Desirable Cholesterol: less than 200 mg/dL Borderline High Cholesterol: 200-239 mg/dL High Cholesterol: greater than 239 mg/dL LDL Cholesterol Calculated 47 <100 mg/dL Desirable LDL: less than 100 mg/dL Near Optimal/Above Optimal LDL: 110-129 mg/dL Borderline High LDL: 130-159 mg/dL High LDL: 160-189 mg/dL Very High LDL: greater than or equal to 190 mg/dL HDL Cholesterol 31 >40 mg/dL Desirable HDL: greater than 40 mg/dL Note: This HDL assay may give artificially low results in patients with liver disease. REASON FOR REFERRAL No Information MEDICATIONS Medication SIG (Take, Route, Frequency, Duration) Notes Start Date End Date Status Aspir-81 81 MG 1 tablet Orally Once a day Active Losartan Potassium 100 MG 1 tablet Orall y Once a day for 30 day(s) Active Zithromax Z-Farhat 250 MG 2 tablet on the irst day, then 1 tablet daily for 4 days Orally Once a day for 5 day(s) 01/20/2024 Active Dilt-XR 180 MG 1 capsule Orally Onc e a day for 30 day(s) Active Trelegy Ellipta 200-62.5-25 MCG/INH 1 puff Inhalation Once a day 12/07/2021 Not-Taking Atorvastatin Calcium 80 MG 1 tablet Orally Once a day Active ProAir RespiClick 108 (90 Base) MCG/ACT 1 puff as needed Inhalation every 4 hrs 11/27/2019 Active Stiolto Respimat 2.5-2.5 MCG/ACT 2 puffs Inhalation Once a day Active Pantoprazole Sodium 40 MG 1 tablet Orall y Once a day for 30 days Not-Taking Tylenol 325 MG 1 capsule as needed Orally every 6 hours as needed Not-Taking Nitrostat 0.4 MG as directed Sublingu al every 5 mins times 3 for 10 days 11/14/2016 Not-Taking IMMUNIZATIONS Vaccine Route Administration Date Status Comme nts Fluarix Quadrivalent IM Intramuscular 04/24/2016 Administe red PPSV23 (Pnemovax) IM Intramuscular 06/05/2016 Administered Fluarix Quadrivalent IM Intramuscular 05/07/2017 Admindaniae ambrose Prevnar 13 IM Intramuscular 08/16/2017 Administered TDaP Unknown 03/11/2018 Administered Stop and Ria p Influenza High Dose IM Intramuscular 05/13/2018 Administer ed Influenza High Dose IM Intramuscular 05/19/2019 Administer ed Influenza High Dose IM Intramuscular 04/28/2020 Administer ed Given by Maximiliano Influenza High Dose IM Intramuscular 05/08/2021 Administer ed SARS-COV-2 Pfizer Unknown 09/27/2020 Administered SARS-COV-2 Pfizer Unknown 10/19/2020 Administered SARS-COV-2 Pfizer Unknown 06/18/2021 Administered Influenza High Dose IM Intramuscular 06/07/2022 Administer ed PPSV23 (Pnemovax) IM Intramuscular 06/14/2022 Administered Influenza High Dose IM Intramuscular 06/13/2023 Administer ed Influenza High Dose IM Intramuscular 07/20/2024 Administer ed SOCIAL HISTORY Tobacco Use: Social History Observation Description Date Details (start date - stop date) Former Smoker NA - NA Sex Assigned At : Social History Observation Description Sex Assigned At Unknown Tobacco Use/Smoking Question Answer Notes Patient is a former smoker How long has it been since y ou last smoked? 1-5 years Additional Findings: Tobacco Non-User Fo rmer smoker, currently using no form of tobacco Alcohol Screen Question Answer Notes Did you have a drink contain ing alcohol in the past year? Yes How often did you have a dri nk containing alcohol in the past year? Monthly or less (1 point) How many drinks did you have on a typical day when you were drinking in the past year? 1 or 2 drinks (0 point) How often did you have 6 or more drinks on one occasion in the past year? Never (0 point) Points 1 Interpretation Negative PROBLEMS Problem Type ICD Code Onset Dates Problem Status W/U Status Risk SNOMED Code Notes Problem Chest pressure (R07.89) Active confirmed 441394481 Problem Hyperlipidemia, unspecified (E78.5) Active confirmed 88746251 Problem Angina pectoris (I20.9) Active confirmed 563811073 Problem Ischemic cardiomyopathy (I25.5) Active confirmed 455731939 Problem S/P drug eluting coronary stent placement (Z95.5) Active confirmed 407807901 Problem Prediabetes (R73.03) Active confirmed 152225429 Problem Abnormal x-ray of lungs with single pulmonary nodule (R91.1) Active confirmed 628495320 Problem Lung nodule (R91.1) Active confirmed 096030209 Problem Coronary artery disease involving coronary bypass graft of mechoopda heart without angina pectoris (I25.810) Active confirmed Significant coronary bypass graft disease (780418850) Problem COPD (chronic obstructive pulmonary disease) (J44.9) Active confirmed COPD - Bellman Captain erika obstructive pulmonary disease (19986678) Problem Diverticulitis (K57.92) Active confirmed Diverticulitis (64156309) Problem Liver lesion (K76.9) Active confirmed Lesion of liver (397621148) VITAL SIGNS Blood pressure diastolic 60 mm Hg 01/20/2024 Height 68 in 01/20/2024 Blood pressure systolic 158 mm Hg 01/20/2024 Weight 167 lbs 01/20/2024 BMI 25.39 kg/m2 01/20/2024 Encounters Encounter Location Date Provider Diagnosis Mert Montalvo MD [address] [place] [address] Drive [address] [place] [id number] 01/13/2024 Mert Montalvo Hyperlipidemia, unspecified E78.5 Mert Montalvo MD [address] [place] [address] [id number] 07/20/2024 Mert Montalvo Blood tests for routine general physical examination Z00.00 ; Hyperlipidemia, unspecified E78.5 ; Prediabetes R73.03 and Encounter for immunization Z23 Mert Montalvo MD [address] [place] [address] Drive [address] [place] [id number] 01/20/2024 Mert Montalvo COPD (chronic obstructive pulmonary disease) J44.9 and Streptococcus exposure Z20.818 Mert Montalvo MD [address] [place] [address] Drive [address] [place] [id number] 10/04/2023 Mert Montalvo MD [address] [place] [address] [id number] 12/09/2023 Mert Montalvo Lung nodule R91.1 ASSESSMENTS Encounter Date Diagnosis Assessment Notes Treatment Notes Treatment Clinical Notes 01/13/2024 Hyperlipidemia, unspecified (ICD-10 - E78.5) 07/20/2024 Hyperlipidemia, unspecified (ICD-10 - E78.5) 07/20/2024 Blood tests for routine general physical examination (ICD-10 - Z00.00) 01/20/2024 COPD (chronic obstructive pulmonary disease) (ICD-10 - J44.9) doing well on oxygen 01/20/2024 Streptococcus exposure (ICD-10 - Z20.818) patient verbalized understanding of medication and directions for use 07/20/2024 Prediabetes (ICD-10 - R73.03) 12/09/2023 Lung nodule (ICD-10 - R91.1) Order made printed and put into the future order folder for . Patient notified. 07/20/2024 Encounter for immunization (ICD-10 - Z23) PLAN OF TREATMENT Pending Test Test Name Order Date Electrocardiogram (EKG) 05/16/2017 CT CHEST NO CONTRAST 06/22/2020 CT CHEST NO CONTRAST 06/08/2021 PETCT SKULL TO THIGH 06/22/2022 Complete Blood Count Auto Diff 4 Comprehensive [place]. Panel Fast 4 Lipid Panel 07/20/2024 PSA,Total (Free>4and<10) 07/20/2024 Microalbumin, Random 07/20/2024 CT chest wo con 07/19/2023 CT chest wo con 12/09/2023 CT chest wo con 07/20/2022 CT chest wo con 10/29/2022 MR abdomen wo/w con 04/29/2023 Hemoglobin A1c 07/20/2024 UA ClnCatch+Micro w/rflx Cult 07/20/2024 Future Test Test Name Order Date CT CHEST NO CONTRAST 06/20/2020 CT CHEST NO CONTRAST 06/09/2022 Next Appt Details Provider Name:Mert beckwith, 08/10/2024 10:00:00 AM, [address] [facility], [address], [place], [place], [phone], Insurance Providers Payer Name Payer Address Payer Phone Subscriber Number Group Number Insured Name Patient Relationship to Insured Coverage Start Date Coverage End Date [employer] [address] [place], [place] [id number] [phone] [id number] RICKY DIAZ Self - patient is the insured MEDICARE NHIC LOAN [address] [place] [id number] RICKY DIAZ Self - patient is the insured MEDICAL (GENERAL) HISTORY Medical History History ICD Code colonoscopy 2005 was negativ e; colonoscopy by Dr. Zimmerman 11/22/17 - repeat 10 years
--- OUTSIDE RECORDS SUMMARY | 2024-07-20 10:32 | XMS_ITS ---
Author Organization [facility] Address [address] [place] [address] Care Team Providers Care Case Resolution Specialist Name Role Phone Mert Montalvo MD Primary Care Provider Xavier Oliveira Unavailable [phone] REASON FOR VISIT diverticulitis showed on pet scan recommended [facility] Encounters Encounter Location Date Provider Diagnosis [facility] [address] [place] [phone] 08/29/2023 Xavier Zimmerman PLAN OF TREATMENT No Information
--- OUTSIDE RECORDS SUMMARY | 2024-07-20 10:32 | XMS_ITS ---
Author Organization Mert Montalvo MD Address [address] [place], [place] [phone] Care Team Providers Care Bow Maker Name Role Phone Selvin Mert Primary Care Provider [phone] ALLERGIES Allergen (clinical drug ingredient) Drug/Non Drug Allergy documented on EMR Reaction Allergy Type Onset Date Status lisinopril Lisinopril cough Drug Allergy Activ e REASON FOR VISIT 6 month MEDICATIONS Medication SIG (Take, Route, Frequency, Duration) Notes Start Date End Date Status Zithromax Z-Farhat 250 MG 2 tablet on the t day, then 1 tablet daily for 4 days Orally Once a day for 5 day(s) 01/20/2024 Active Trelegy Ellipta 200-62.5-25 MCG/INH 1 puff Inhalation Once a day 12/07/2021 Not-Taking Pantoprazole Sodium 40 MG 1 tablet Orall y Once a day for 30 days Not-Taking Tylenol 325 MG 1 capsule as needed Orally every 6 hours as needed Not-Taking Nitrostat 0.4 MG as directed Sublingu al every 5 mins times 3 for 10 days 11/14/2016 Not-Taking Aspir-81 81 MG 1 tablet Orally Once a day Active Losartan Potassium 100 MG 1 tablet Orall y Once a day for 30 day(s) Active Atorvastatin Calcium 80 MG 1 tablet Orally Once a day Active ProAir RespiClick 108 (90 Base) MCG/ACT 1 puff as needed Inhalation every 4 hrs 11/27/2019 Active Stiolto Respimat 2.5-2.5 MCG/ACT 2 puffs Inhalation Once a day Active Dilt-XR 180 MG 1 capsule Orally Onc e a day for 30 day(s) Active VITAL SIGNS BMI 25.39 kg/m2 01/20/2024 Blood pressure systolic 158 mm Hg 01/20/20 24 Blood pressure diastolic 60 mm Hg 024 Height 68 in 01/20/2024 Weight 167 lbs 01/20/2024 Encounters Encounter Location Date Provider Diagnosis Mert Montalvo MD [address] [place] [address] Drive [address] [place] [id number] 01/20/2024 Mert Montalvo COPD (chronic obstructive pulmonary disease) J44.9 and Streptococcus exposure Z20.818 ASSESSMENTS Encounter Date Diagnosis Assessment Notes Treatment Notes Treatment Clinical Notes 01/20/2024 COPD (chronic obstructive pulmonary disease) (ICD-10 - J44.9) doing well on oxygen 01/20/2024 Streptococcus exposure (ICD-10 - Z20.818) patient verbalized understanding of medication and directions for use PLAN OF TREATMENT Medication Medication Name Sig Start Date Stop Date Notes Zithromax Z-Farhat 250 MG 2 tablet on the f irst day, then 1 tablet daily for 4 days Orally Once a day for 5 day(s) 01/20/2024 Treatment Notes Assessment Notes COPD (chronic obstructive pu lmonary disease) doing well on oxygen Streptococcus exposure patient verbalize d understanding of medication and directions for use Next Appt Details Provider Name:Mert beckwith, 08/10/2024 10:00:00 AM, [address] [place] [address] Drive, [address], [place], [place], [phone], Progress Notes * Examination Category Sub-Category Detail Notes General Examination GENERAL APPEARANCE: alert, w ell hydrated, in no distress HEAD: normocephalic HEART: no murmurs, rubs, ga llops, regular rate and rhythm LUNGS: no wheezes, rales, r honchi, good air movement, clear to auscultation bilaterally SKIN: good turgor skin les ion ray e on back
--- OUTSIDE RECORDS SUMMARY | 2024-07-20 10:32 | XMS_ITS ---
Author Organization Mert Montalvo MD Address [address] [place] [phone] Care Team Providers Care Scheduling Manager Name Role Phone Selvin Mert Primary Care Provider REASON FOR VISIT yearly fasting labs IMMUNIZATIONS Vaccine Route Administration Date Status Comme nts Influenza High Dose IM Intramuscular 07/20/2024 Administer ed Encounters Encounter Location Date Provider Diagnosis Mert Montalvo MD [address] [place] [phone] 07/20/2024 Mert Montalvo Blood tests for routine general physical examination Z00.00 ; Hyperlipidemia, unspecified E78.5 ; Prediabetes R73.03 and Encounter for immunization Z23 ASSESSMENTS Encounter Date Diagnosis Assessment Notes Treatment Notes Treatment Clinical Notes 07/20/2024 Blood tests for routine general physical examination (ICD-10 - Z00.00) 07/20/2024 Hyperlipidemia, unspecified (ICD-10 - E78.5) 07/20/2024 Prediabetes (ICD-10 - R73.03) 07/20/2024 Encounter for immunization (ICD-10 - Z23) PLAN OF TREATMENT Pending Test Test Name Order Date Complete Blood Count Auto Diff 4 Comprehensive [place]. Panel Fast 4 Lipid Panel 07/20/2024 PSA,Total (Free>4and<10) 07/20/2024 Microalbumin, Random 07/20/2024 Hemoglobin A1c 07/20/2024 UA ClnCatch+Micro w/rflx Cult 07/20/2024 Next Appt Details Provider Name:Mert beckwith, 08/10/2024 10:00:00 AM, [address] [place] [address], [address], [place], [place], [phone],
--- OUTSIDE RECORDS SUMMARY | 2024-07-20 10:32 | XMS_ITS ---
Author Organization Mert Montalvo MD Address [address] [place], [place] [phone] Care Team Providers Care Strategic Sourcing Consultant Name Role Phone Mert Montalvo Primary Care Provider [phone] RESULTS Component Value Reference Range Notes Liver Panel Reviewed date:01/13/2024 02:27:06 PM Interpretation: Performing Lab:[facility], [address] [place] [phone] Notes/Report: Bilirubin Total 1.0 0.0-1.0 mg/dL Bilirubin Direct 0.3 0.0-0.5 mg/dL Aspartate Amino Transferase 21 5-37 U/L Alanine Aminotransferase 27 0-40 U/L Total Protein 7.7 6.5-8.0 g/dL Albumin Level 4.1 3.5-5.0 g/dL Alkaline Phosphatase 58 39-117 U/L Lipid Panel with Reflex Reviewed date:01/13/2024 04:50:29 PM Interpretation: Performing Lab:[facility], [address] [place] [phone] Notes/Report: Triglycerides 93 <150 mg/dL Desirable Triglyceride: [...] in patients with liver disease. REASON FOR VISIT lipids Encounters Encounter Location Date Provider Diagnosis Mert Montalvo MD [address] [place] [address] [place] [phone] 01/13/2024 Mert Montalvo Hyperlipidemia, unspecified E78.5 ASSESSMENTS Encounter Date Diagnosis Assessment Notes Treatment Notes Treatment Clinical Notes 01/13/2024 Hyperlipidemia, unspecified (ICD-10 - E78.5) PLAN OF TREATMENT Next Appt Details Provider Name:Mert beckwith, 08/10/2024 10:00:00 AM, [address] [place] [address], [address], [place], [place], [phone],
--- OUTSIDE RECORDS SUMMARY | 2024-07-20 10:33 | XMS_ITS ---
Author Organization [facility] Address [address] [place] [address] Care Team Providers Care Milk Sampler Name Role Phone Selvin CUELLO, Mert Primary Care Provider Xavier Oliveira Unavailable [phone] REASON FOR VISIT abn ct scan stomach, abn ct scan esophagus PROBLEMS Problem Type ICD Code Onset Dates Problem Status W/U Status Risk SNOMED Code Notes Problem Gastritis (K29.70) Active confirmed Gastritis (0538083) Encounters Encounter Location Date Provider Diagnosis [facility] Out[facility] [address] [place], [place] [phone] 04/03/2023 Xavier Zimmerman Hiatal hernia K44. 9 ; Gastritis K29.[address] scan, esophagus R93.3 ASSESSMENTS Encounter Date Diagnosis Assessment Notes Treatment Notes Treatment Clinical Notes 04/03/2023 Hiatal hernia (ICD-10 - K44.9) 04/03/2023 Gastritis (ICD-10 - K29.70) 04/03/[address] scan, esophagus (ICD-10 - R93.3) PLAN OF TREATMENT No Information
--- OUTSIDE RECORDS SUMMARY | 2024-07-20 10:33 | XMS_ITS | Patient Health Record ---
Author Organization [facility] Address [address] [place] [address] Care Team Providers Care Outside Plant Supervisor Name Role Phone Selvin CUELLO, Mert Primary Care Provider Xavier Oliveira Unavailable [phone] REASON FOR REFERRAL No Information MEDICATIONS Medication SIG (Take, Route, Frequency, Duration) Notes Start Date End Date Status Stiolto Respimat 2.5-2.5 MCG/ACT 2 puffs Inhalation Once a day Active Albuterol Active Aspir-81 81 MG 1 tablet Orally Once a day Active Losartan Potassium 50 MG 1 tablet Orally Once a day Active Atorvastatin Calcium 80 MG 1 tablet Oral ly Once a day Active Dilt-XR 180 MG 1 capsule Orally Onc e a day for 30 day(s) 04/02/2023 Active SOCIAL HISTORY Tobacco Use: Social History Observation Description Date Details (start date - stop date) Never Smoker NA - NA Sex Assigned At : Social History Observation Description Sex Assigned At Unknown Tobacco Use/Smoking Question Answer Notes Patient is a nonsmoker Alcohol Screen Question Answer Notes Did you [...] W/U Status Risk SNOMED Code Notes Problem Encounter for screening for malignant neoplasm of colon (Z12.11) Active confirmed 533224036 Problem Preprocedural examination (Z01.818) Active confirmed 182439267 Problem Abnormal CT scan, esophagus (R93.3) Active confirmed 292289909 Problem Abnormal CT scan, stomach (R93.3) Active confirmed 208110106 Problem Abnormal CT of liver (R93.2) Active confirmed 26905994537963948 Problem Gastritis (K29.70) Active confirmed Gastritis (9576657) Encounters Encounter Location Date Provider Diagnosis [facility] [address] [place] [address] 08/29/2023 Xavier Zimmerman PLAN OF TREATMENT Pending Test Test Name Order Date US abdomen limited 04/02/2023 US abdomen limited 04/19/2023 Future Test Test Name Order Date COLONOSCOPY 09/04/2017 UPPER GI ENDOSCOPY 03/31/2023 UPPER GI ENDOSCOPY 04/02/2023 Insurance Providers Payer Name Payer Address Payer Phone Subscriber Number Group Number Insured Name Patient Relationship to Insured Coverage Start Date Coverage End Date [facility] [address] [place] [address] [id number] RICKY GRANADOS Self - patient is the insured MEDICAL (GENERAL) HISTORY Medical History History ICD Code Denies CT,DM,CVA,renal disease Negative colonoscopy at age 56 [address] [facility] an d in 2017 with me at [facility] CAD-2 stents placed in 05/[address] Thomas--he denies any cardiac issues since that time, although did have a negative cardiac catheterization about 6 months after the original placement of the cardiac stents HTN Hyperlipidemia Emphysema and pulmonary nodules Abnormal PET-CT scan involvi ng the proximal esophagus, gastric fundus, and left lobe of the liver. CT scans did not describe any abnormality in those areas. Surgical History Surgery Date(Month/Year) 3V CABG 2019 Tonsillectomy
--- OUTSIDE RECORDS SUMMARY | 2024-07-20 10:33 | XMS_ITS ---
Author Organization [facility] Address [address] [place] [address] Care Team Providers Care Environmental Engineering Manager Name Role Phone Mert Montalvo MD Primary Care Provider Xavier Oliveira [facility] [phone] Encounters Encounter Location Date Provider Diagnosis [facility] [address] [place] [address] 04/02/2023 Xavier Zimmerman PLAN OF TREATMENT No Information
[2024-07-20 10:38] LABS: MANUAL DIFF FLAG NO
[2024-07-20 11:36] LABS: Appearance Urine Clear; Color Urine Yellow; Glucose Urine UA Negative (Negative); Leukocyte Esterase Urine Negative (Negative); Nitrite Urine Negative (Negative); Urine Blood Negative (Negative); Urine Ketones Negative (Negative); Urine Protein Negative (Neg-Trace)
[2024-07-20 11:42] LABS: Bacteria Urine None Seen (None Seen); Hyaline Casts Urine 0-2 /LPF (0-2); RBC Urine 0-2 /HPF (0-2); Squamous Epithelial Cell Urine 0-2 /HPF (0-2); WBC Urine 0-5 /HPF (0-5)
[2024-07-20 11:52] LABS: Basophils Percent Auto 0.6 % (0-2); Eosinophils Absolute Auto 0.2 X10*3/uL (0.0-0.4); Eosinophils Percent Auto 3.2 % (0-4); Hematocrit 53.9 % (42.0-52.0); Hemoglobin 17.7 g/dl (14.0-18.0); Imm Gran Abs Auto 0.02 X10*3/uL (0.00-0.03); Imm Gran Pct Auto 0.3 % (0.0-0.4); Lymphocytes Absolute Auto 1.7 X10*3/uL (1.2-4.9); Lymphocytes Percent Auto 24.1 % (20-40); Mean Corpuscular HGB Conc 32.8 g/dl (31.0-36.0); Mean Corpuscular Hemoglobin 32.4 pg (27.0-33.0); Mean Corpuscular Volume 98.7 fL (80.0-98.0); Mean Platelet Volume 11.5 fL (9.4-12.4); Monocytes Absolute Auto 0.8 X10*3/uL (0.1-1.2); Monocytes Percent Auto 10.9 % (2-11); Neutrophils Absolute Auto 4.2 x10*3/uL (2.0-8.3); Neutrophils Percent Auto 60.9 % (45-73); Platelet Count 159 X10*3/uL (160-400); Red Blood Count 5.46 X10*6/uL (4.60-5.80); Red Cell Distribution Width 14.7 % (11.0-16.0); White Blood Count 6.9 X10*3/uL (4.8-10.8)
[2024-07-20 11:56] LABS: Estimated Average Glucose 117 mg/dL; Hemoglobin A1C 174.6261 umol/L; Hemoglobin A1c % 5.7 % (<6.0)
[2024-07-20 12:03] LABS: Alanine Aminotransferase 40 U/L (0-40); Albumin Level 4.3 g/dL (3.5-5.0); Alkaline Phosphatase 49 U/L (39-117); Anion Gap 13 (12-20); Aspartate Amino Transferase 32 U/L (5-37); Bilirubin Total 1.6 mg/dL (0.0-1.0); Blood Urea Nitrogen 21 mg/dL (9-16); Calcium 9.4 mg/dL (8.4-10.2); Carbon Dioxide 24 mmol/L (22-29); Chloride 109 mmol/L (96-108); Cholesterol 102 mg/dL (<200); Estimated Glomerular Filt Rate 55; Glucose Fasting 100 mg/dL (60-99); HDL Cholesterol 33 mg/dL (>40); LDL Cholesterol Calculated 49 mg/dL (<100); Potassium 3.8 mmol/L (3.3-5.1); Sodium 142 mmol/L (135-145); Total Protein 7.8 g/dL (6.5-8.0); Triglycerides 104 mg/dL (<150)
[2024-07-20 12:16] LABS: PSA,Total (Free>4and<10) 0.23 ng/mL (0.00-4.00)
[2024-07-20 12:20] LABS: Creatinine Urine 128.26 mg/dL; Microalbum/Creatinine Ratio Ur 10.1 ug/mg cr (<30)
== END 2024-07-20 10:30 | disposition home or self-care (01) ==
LOC: HO.LNP 10:29
PROVIDERS: Visit Provider Internal Medicine
DX: Z00.00 Encounter for general adult medical examination without abnormal findings (principal); E78.5 Hyperlipidemia, unspecified; Z12.5 Encounter for screening for malignant neoplasm of prostate; R73.03 Prediabetes
CPT/HCPCS: 80053; 80061; 81001; 82043; 82570; 83036; 84153; 85025

== ENCOUNTER 2025-02-03 07:08 | Outpatient (REF) | payer BC, SELFPAY ==
--- NOTE | ~2025-02-03 | CT_ITS ---
EXAMINATION: CT CHEST WITHOUT IV CONTRAST INDICATION: LUNG NODULE COMPARISON: There is an is made with the prior examination dated 12/02/2023. TECHNIQUE: Helical CT scan of the chest was performed without intravenous contrast. Coronal and sagittal reformatted images were generated and reviewed. This CT exam was performed with one or more of the following dose reduction techniques: automated exposure control, adjustment of the mA and/or kV according to patient size, use of iterative reconstruction technique. DLP: 174 mGy-cm CHEST: THYROID: The thyroid is unremarkable. LUNGS: Again seen is moderate to severe emphysema. There is linear scarring at the right lung apex. A 3 mm nodule at the medial aspect of the right lung apex is not significantly changed. An 8 mm polygonal nodule at the anterior aspect of the right minor fissure is consistent with an intrapulmonary lymph node (series 4, image 106). There are tiny calcified granulomas in the right lower lobe (series 4, image 121), and in the left lower lobe (series 4, image 86). MEDIASTINUM: Again seen are enlarged paratracheal lymph nodes measuring up to 1.6 cm in size. MARIA ELENA: Evaluation of the hilar regions is limited by lack of intravenous contrast material. CARDIOVASCULATURE: The heart is normal in size. There is no pericardial effusion. The thoracic aorta demonstrates atherosclerotic calcification, but is normal in caliber. DEGREE OF CORONARY CALCIFICATION: severe, status post CABG. PLEURA: There is no pleural effusion. No pneumothorax. MAIN AIRWAYS: The mainstem bronchi and proximal branches are patent. AXILLA: There is no axillary lymphadenopathy. BONES AND SOFT TISSUES: Unremarkable UPPER ABDOMEN: The visualized portions of the liver, spleen, and adrenals have an unremarkable unenhanced appearance. CT/CT chest wo IV con IMPRESSION: Moderate to severe emphysema. Stable scattered pulmonary nodules as described. Electronically signed by: Xavier Matta MD 02/03/2025 01:13 PM EDT
== END 2025-02-03 07:09 | disposition home or self-care (01) ==
LOC: HO.CT 07:08
PROVIDERS: PCP Internal Medicine; Visit Provider Internal Medicine
DX: R91.1 Solitary pulmonary nodule (principal)
CPT/HCPCS: 71250

== ENCOUNTER → 2025-02-03 07:11 | Outpatient (BNV) | payer BC, SELFPAY | PROVIDERS: PCP Internal Medicine; Visit Provider Radiology Diagnostic Radiology | DX: J43.9 Emphysema, unspecified (principal); R91.8 Other nonspecific abnormal finding of lung field | CPT/HCPCS: 71250 ==

== ENCOUNTER 2025-02-15 10:44 | Outpatient (REF) | payer BC, SELFPAY ==
[2025-02-15 12:11] LABS: Alanine Aminotransferase 36 U/L (0-40); Albumin Level 4.3 g/dL (3.5-5.0); Alkaline Phosphatase 53 U/L (39-117); Aspartate Amino Transferase 36 U/L (5-37); Cholesterol 91 mg/dL (<200); HDL Cholesterol 32 mg/dL (>40); Total Protein 7.1 g/dL (6.5-8.0); Triglycerides 90 mg/dL (<150)
[2025-02-15 12:34] LABS: Reflex LDLD? No
[2025-02-15 12:45] LABS: Hemoglobin A1C 183.6670 umol/L; Total Hemoglobin (HGBA1C) 4392.9697 umol/L
== END 2025-02-15 10:45 | disposition home or self-care (01) ==
LOC: HO.LNP 10:44
PROVIDERS: Visit Provider Internal Medicine
DX: E78.5 Hyperlipidemia, unspecified (principal); R73.03 Prediabetes
CPT/HCPCS: 80061; 80076; 82947; 83036